=== PATIENT | female | born 1965 | race Caucasian/White ===

== ENCOUNTER 2022-05-13 10:41 | Observation (INO) | payer OTHER, SELFPAY ==
[2022-05-13] VITALS (7 sets, daily range): BP systolic 118–145; BP diastolic 60–82; PULSE 67–86; RESP 15–20; TEMP 36.2–38.1; O2SAT 96–100; BMI 26.5
--- NOTE | ~2022-05-13 | XR_ITS ---
XR chest 2V 05/13/2022 12:38 Indication: Shortness of breath with chest pain Procedure: 2 view chest Comparison: 10/19/2012 Findings: Heart size normal. There are calcified granulomas in the left apex unchanged. There is apic al pleural thickening/scarring unchanged. No acute focal pneumonia, edema, pleural effusion or pneumo thorax. No acute osseous abnormality. There are cholecystectomy clips. Impression: 1: No acute cardiopulmonary disease. Reviewed, dictated and finalized at location B. ICAL RESEARCH ASSOCIATE Impression: 1: No acute cardiopulmonary disease.
--- NOTE | 2022-05-13 11:02 | ECG_ITS ---
Measurements Intervals [place] Rate: 78 P: 73 IA: 145 QRS: 62 QRSD: 87 T: 56 QT: 376 QTc: 429 Interpretive Statements SINUS RHYTHM INCOMPLETE RIGHT BUNDLE BRANCH BLOCK BORDERLINE ECG NO PREVIOUS ECG AVAILABLE FOR COMPARISON Electronically Signed On 05-13-2022 11:36:21 FELLING MACHINE OPERATOR by Toni Doran D.O.
[2022-05-13 11:18] LABS: Basophils Percent Auto 0.7 % (0.2-1.2); Eosinophils Percent Auto 0.2 % (0-4.4); Hematocrit 42.1 % (37.0-47.0); Hemoglobin 13.8 g/dL (12.0-15.0); Immature Granulocyte Absolute 0.01 K/mm3 (0.00-0.031); Immature Granulocyte Percent A 0.2 % (0-0.5); Lymphocytes Absolute Auto 1.17 K/mm3 (0.9-3.2); Lymphocytes Percent Auto 21.7 % (18.3-44.2); Mean Corpuscular HGB Conc 32.8 g/dl (32-36); Mean Corpuscular Volume 85.6 fl (80-100); Monocytes Absolute Auto 0.7 K/mm3 (0.1-0.6); Monocytes Percent Auto 13.8 % (2.6-8.5); Neutrophils Absolute Auto 3.4 K/mm3 (1.3-6.7); Neutrophils Percent Auto 63.4 % (45.5-73.1); Platelet Count Result 172 k/mm3 (150-375); Red Blood Count 4.92 M/mm3 (4.2-5.4); Red Cell Distribution Width 13.3 % (11.5-14.5); White Blood Count 5.4 K/mm3 (4.5-10.0)
[2022-05-13 11:30] LABS: Alanine Aminotransferase 17 U/L (6-35); Albumin Level 4.4 g/dL (3.5-5.1); Alkaline Phosphatase 86 U/L (38-126); Anion Gap 10 mmol/L (8-16); Aspartate Amino Transferase 26 U/L (14-36); Bilirubin,Total 0.5 mg/dL (0.2-1.3); Blood Urea Nitrogen 16 mg/dL (7-17); Calcium 9.2 mg/dL (8.4-10.2); Carbon Dioxide 25 mmol/L (22-30); Chloride 105 mmol/L (98-107); Estimated CRCL calculation 41 ml/min; Estimated Glomerular Filt Rate 51; Glucose 95 mg/dL (65-110); Potassium 4.8 mmol/L (3.4-5.0); Sodium 140 mmol/L (137-145)
[2022-05-13 11:41] LABS: Troponin I < 0.012 ng/mL (0.000-0.034)
--- NOTE | 2022-05-13 12:24 | ED.SOB ---
HPI - SOB/Dyspnea General Chief Complaint: Shortness of Breath/Dyspnea <ODALYS Emery Last Filed: 05/13/22 18:07> Stated Complaint: cough/some sob <ODALYS Emery Last Filed: 05/13/22 18:07> Time Seen by Provider: 05/13/22 12:10 <ODALYS Emery Last Filed: 05/13/22 18:07> History of Present Illness HPI Narrative: Patient is a 57-year-old female with a history of COPD here for evaluation of fevers, cough, congestion and shortness of breath over the past 3 days. Her symptoms began with exertional dyspnea but today she was dyspneic at rest. Positive sick contacts, patient states that her mother is sick with similar symptoms. Patient has been taking Tylenol for fever, none today. She is unsure how high her fever reached. Patient is traveling from [place], states that her die maker apprentice told her to come to the ED for evaluation. No syncope or weakness. <ODALYS Emery Last Filed: 05/13/22 18:07> Related Data Home Medications: Home Medications Medication Instructions Recorded Confirmed amlodipine 2.5 mg tablet 2.5 mg DAILY 05/13/22 05/13/22 atorvastatin 10 mg tablet 10 mg HS 05/13/22 05/13/22 fluticasone fur. 100 mcg-umeclid 1 ea inhalation DAILY 05/13/22 05/13/22 62.5 mcg-vilant 25 mcg inhalat.powder (Trelegy Ellipta) montelukast 10 mg tablet 10 mg DAILY 05/13/22 05/13/22 <ODALYS Emery Last Filed: 05/13/22 18:07> Allergies/Adverse Reactions: Allergies Allergy/AdvReac Type Severity Reaction Status Date / Time codeine Allergy Unknown abdominal Verified 05/13/22 12:48 pain <ODALYS Emery Last Filed: 05/13/22 18:07> Review of Systems Review of Systems: Gen.: Reports fevers. Eyes: Denies eye pain or visual change ENT: Denies congestion Respiratory: Reports shortness of breath and cough. CV: Denies chest pain or palpitations GI: Denies abdominal pain nausea, emesis or diarrhea denies burning, urgency, frequency or hematuria Musculoskeletal: Denies back pain or muscle pain Neuro: Denies numbness, tingling, weakness or focal weakness Skin: Denies rash Except as documented, all other systems reviewed and negative <Isis Lakhani PA-C - Last Filed: 05/13/22 18:07> [facility] Family History Family History: Family History Mother Family history of osteoporosis Sibling Hypertension Father Cerebrovascular accident Family history of Alzheimer's disease Family history of heart disease in male family member before age 55 <Isis Lakhani PA-C - Last Filed: 05/13/22 18:07> Social History Social History: Social History Smoking status: Never smoker Alcohol intake: never Lack of Transportation: No Lack of Food: Never True Current Housing: I Have Housing Concerned About Future Housing: No Difficulty Paying Gas/Electric Bills: No Difficulty Paying for Meds: No Currently Unemployed: No Education: Decline to Answer Difficulty w/ Childcare or Family Care: No Spiritual care concerns: No <Isis Lakhani PA-C - Last Filed: 05/13/22 18:07> Exam Narrative: APPEARANCE: Well appearing, no pain in distress, well-nourished. Head: Normocephalic and atraumatic. EYES: PERRLA/EOMI, conjunctivae clear NOSE: No nasal drainage EARS: External ear normal in appearance THROAT: Oropharynx is clear. Mucous membranes are moist. NECK: Supple. No adenopathy, no masses. RESPIRATORY: Airway patent, respirations nonlabored. Clear to auscultation bilaterally, no rales, rhonchi, wheezing. CARDIOVASCULAR: Regular rate and rhythm without murmurs, rubs, or gallops. ABDOMINAL: Normoactive bowel sounds. Soft, nontender, nondistended. No rebound tenderness or guarding. MUSCULOSKELETAL: Extremities are warm and well-perfused. Moves all extremities well. No
[2022-05-13] MEDS: ACETAMINOPHEN 500 MG TABLET 1000 MG PO (12:47)
[2022-05-13 13:08] LABS: Influenza A QL RT-PCR Positive (Negative); Influenza B QL RT-PCR Negative (Negative); SARS-CoV-2 RNA PCR Negative
[2022-05-13] MEDS: predniSONE 20 MG TABLET 40 MG PO (13:18)
[2022-05-13] MEDS: IPRATROPIUM BR 0.02% INH SOLN 0.5 MG/2.5 ML VIAL INHALATION (13:19)
[2022-05-13] MEDS: ALBUTEROL SULFATE NEB 2.5 MG/3 ML INH INHALATION (13:19)
[2022-05-13 13:36] LABS: Base Excess ABG -1.5 mEq/l (+/-2.0); Fractional Inspired Oxygen 21 %; HCO3 ABG 20.1 mEq/l (22.0-26.0); Oxygen Content ABG 18.8 %vol (16.0-22.0); Oxygen Saturation ABG 97.1 % (95.0-100.0); Oxyhemoglobin 95.9 % THb (90.0-100.0); PCO2 ABG 26.2 mmHg (35.0-45.0); PO2 ABG 82.4 mmHg (80.0-100.0); PO2 FiO2 Ratio Arterial Blood 3.92 %; Total Hemoglobin 13.9 g/dL (12.0-18.0)
[2022-05-13 13:39] LABS: Device ROOM AIR; Modified Allen's Test Pass; Site Drawn LEFT RADIAL; pH ABG 7.502 (7.350-7.450)
--- NOTE | 2022-05-13 14:49 | PM.IMHP ---
H&P: HPI History of Present Illness Date/Time: 05/13/22 14:49 Chief Complaint: Shortness of breath, cough Narrative: 57-year-old female with a history of COPD who presented to the ER complaints of worsening shortness of breaths. Patient stated she started having fever started tonight. Her mother is also sick. Patient is from out of state. She was told by her tube coremaker to go get evaluated in the ER. She is currently not on any oxygen. In the ER her influenza a was positive. She also has some cough with occasional sputum production. No chest pain, no change in bladder or bowel habits, no change in her neurological status. Review of Systems Review of Systems: Gen.: Reports fevers. Eyes: Denies eye pain or visual change ENT: Denies congestion Respiratory: Reports shortness of breath and cough. CV: Denies chest pain or palpitations GI: Denies abdominal pain nausea, emesis or diarrhea denies burning, urgency, frequency or hematuria Musculoskeletal: Denies back pain or muscle pain Neuro: Denies numbness, tingling, weakness or focal weakness Skin: Denies rash Except as documented, all other systems reviewed and negative [facility] Family History Family History Mother Family history of osteoporosis Sibling Hypertension Father Cerebrovascular accident Family history of Alzheimer's disease Family history of heart disease in male family member before age 55 Social History Social History Smoking status: Never smoker Alcohol intake: never Meds Home Medications and Allergies Allergies Allergy/AdvReac Type Severity Reaction Status Date / Time codeine Allergy Unknown abdominal Verified 05/13/22 12:48 pain Vital Signs Vital Signs - 24 hr 05/13/22 10:58 05/13/22 13:30 05/13/22 13:40 Temperature 100.6 F H Pulse Rate 86 76 84 Respiratory Rate 20 18 20 Blood Pressure 145/82 H Pulse Oximetry 100 Oxygen Delivery Room Air 05/13/22 13:58 05/13/22 12:31 Temperature Pulse Rate 78 Respiratory Rate 15 Blood Pressure 133/74 Pulse Oximetry 96 Oxygen Delivery Room Air Exam Narrative: APPEARANCE: Well appearing, no pain in distress, well-nourished. Head: Normocephalic and atraumatic. EYES: PERRLA/EOMI, conjunctivae clear NOSE: No nasal drainage EARS: External ear normal in appearance THROAT: Oropharynx is clear. Mucous membranes are moist. NECK: Supple. No adenopathy, no masses. RESPIRATORY: Airway patent, respirations nonlabored. Clear to auscultation bilaterally, no rales, rhonchi, wheezing. CARDIOVASCULAR: Regular rate and rhythm without murmurs, rubs, or gallops. ABDOMINAL: Normoactive bowel sounds. Soft, nontender, nondistended. No rebound tenderness or guarding. MUSCULOSKELETAL: Extremities are warm and well-perfused. Moves all extremities well. No edema. NEURO: Normal speech. No focal neurologic deficits. SKIN: Skin is warm and dry. No rashes. PSYCHIATRIC: Normal affect/mood. H&P: Results Labs Labs: Short CBC 05/13/22 Range/Units 11:07 WBC 5.4 (4.5-10.0) K/mm3 Hgb 13.8 (12.0-15.0) g/dL Hct 42.1 (37.0-47.0) % Plt Count 172 (150-375) k/mm3 BMP 05/13/22 11:07 Sodium 140 Potassium 4.8 Chloride 105 Carbon Dioxide 25 BUN 16 Creatinine 1.10 H Glucose 95 Calcium 9.2 Cardiac Enzymes 05/13/22 Range/Units 11:07 Troponin I < 0.012 (0.000-0.034) ng/mL Liver Function 05/13/22 Range/Units 11:07 Total Bilirubin 0.5 (0.2-1.3) mg/dL AST 26 (14-36) U/L ALT 17 (6-35) U/L Alkaline Phosphatase 86 (38-126) U/L Albumin 4.4 (3.5-5.1) g/dL Assessment and Plan Assessment and plan (1) Influenza A: Code(s): J10.1 - Influenza due to other identified influenza virus with other respiratory manifestations Status: Acute Assessment and Plan: Her symptoms are likely due to influ
[2022-05-13] MEDS: LACTATED RINGERS 1,000 ML 100 ML IV CONT (15:55)
--- NOTE | 2022-05-13 16:32 | ADMGEN ---
This patient, Rosibel Grider, was admitted to [facility] Surg Room 300-01 at 1605. Patient/family oriented to hospital policies and general routines including ID bracelet, bed and alarms, visiting hours, pain management, procedures, bathroom and other care routines, personal items, smoking policy, room service/diet, and visiting hours. Information on how to activate the Rapid Response Team has been discussed. Patient/Family are encouraged to report perceived risks to care and to ask questions if they do not understand what they are told or what they should do.
[2022-05-13] MEDS: OSELTAMIVIR PHOSPHATE 30 MG CAPSULE PO (21:58)
[2022-05-14] MEDS: guaiFENesin/DEXTROMETHORPHAN 10 ML UDC PO (05:37)
[2022-05-14 06:00] VITALS: BP 142/71; PULSE 72; RESP 16; TEMP 36.4; O2SAT 97
[2022-05-14] MEDS: MONTELUKAST SODIUM 10 MG TABLET BY MOUTH (09:51)
[2022-05-14] MEDS: OSELTAMIVIR PHOSPHATE 30 MG CAPSULE PO ×2 (09:51→16:54)
[2022-05-14] MEDS: ENOXAPARIN 40 MG/0.4 ML SYRINGE SUB-Q (09:51)
[2022-05-14] MEDS: amLODIPine BESYLATE 2.5 MG TABLET BY MOUTH (09:51)
[2022-05-14] MEDS: FLUTICASONE/UMECLIDIN/VILANTER 100-62.5-25 MCG ELLIPTA 1 PUFF INHALATION (12:15)
[2022-05-14] MEDS: ALBUTEROL SULFATE NEB 2.5 MG/3 ML INH INHALATION ×2 (12:15→18:02)
[2022-05-14] MEDS: IPRATROPIUM BR 0.02% INH SOLN 0.5 MG/2.5 ML VIAL INHALATION ×2 (12:15→18:02)
[2022-05-14 12:16] VITALS: PULSE 70; RESP 18
[2022-05-14 12:19] VITALS: O2SAT 97
[2022-05-14 12:26] VITALS: PULSE 73; RESP 18
[2022-05-14 14:00] VITALS: BP 132/73; PULSE 74; RESP 20; TEMP 37.2; O2SAT 97
--- NOTE | 2022-05-14 16:57 | PM.DS ---
DS: Admitting Diagnosis Discharge Date 05/14/22 Admitting Diagnosis Shortness of breath DS: Discharge Diagnosis Discharge Diagnosis (1) Influenza A: Code(s): J10.1 - Influenza due to other identified influenza virus with other respiratory manifestations Status: Acute (2) Acute exacerbation of chronic obstructive airways disease: Code(s): J44.1 - Chronic obstructive pulmonary disease with (acute) exacerbation Status: Acute DS: Summary Hospital Course Reason for hospitalization: 57yo female here for shortness of breath and found to have influenza A. Please see H&P for details. Hospital Course: Patient presents with worsening shortness of breaths with fevers.? Her mother is also sick.? Patient is from out of state.? She was told by her automotive lube technician to go get evaluated in the ER.? Influenza A was positive.? She is having cough with occasional sputum production.?She was started on Tamiflu and nebulizers.? She had Tylenol and ibuprofen available for pain and fever.? It was felt whe had mild COPD exacerbation vs acute bronchitis.? No wheezing.? Robitussin DM was available for cough. Patient remained on room air. She had clinical improvement. She was able to be discharged home on 05/14/22. Status at Discharge Cognitive/behavioral status at discharge: Stable Time Spent with Patient Time attestation: Total time spent providing and/or coordinating discharge services: 34 minutes Time spent: Greater than 30 minutes Exam Narrative: Tm 100.6 98.9 132/73 74 20 97% ra Gen - NARD Chest - mild diffuse coarseness, no wheezing CV - RRR S1/S2 Abd - soft, NT/ND Ext - no edema Psych - nml mood and affect Skin - warm and dry Discharge Plan Discharge Attending physician on discharge: Jian Norwood Consulting providers: Isis Lakhani Discharging Clinician: Jian Norwood Anticipated Discharge Date/Time: 05/14/22 17:06 Patient Disposition: Home, Self-Care Activity: as tolerated Diet: regular Discharge Instructions: Stay home, rest, and drink plenty of fluids. Take acetaminophen for fever or aches. Most people with the flu get better on their own within 1 to 2 weeks. Do not go to work or school until your fever has been gone for at least 24 hours, without taking medicine such as acetaminophen. Return to the ED or call your doctor if you have recurrent fever, more productive cough or other concerning symptoms. You will be going home with Tamiflu. Take all the medication until it is gone. Follow up with your doctor once you return home. Patient Instructions: Antibiotic Form Stand Alone Forms: General Discharge Information Follow-up/Referrals: PHYSICIAN NOT ON STAFF,NONSTAFF [Primary Care Provider] - Call for Appointment Discharge Medications: New albuterol sulfate [Proventil HFA] 90 mcg/actuation Hfa Aerosol Inhaler 2 puff inhalation QIDRT PRN (Reason: Shortness Of Breath) Qty: 6.7 0RF oseltamivir [Tamiflu] 30 mg Capsule 30 mg PO Q12HR Qty: 6 0RF Continued atorvastatin 10 mg Tablet 10 mg HS amlodipine 2.5 mg tablet 2.5 mg DAILY montelukast 10 mg tablet 10 mg DAILY Trelegy Ellipta 100-62.5-25 mcg Blister With Device 1 ea INHALATION DAILY Date of admission: 05/13/22 14:06 Primary Care Provider: PHYSICIAN NOT ON STAFF,NONSTAFF Admitting Provider: Guy Moseley Attending physician on admission: Guy Moseley Condition: Stable
[2022-05-14 18:02] VITALS: PULSE 70; RESP 18
== END 2022-05-14 18:25 | disposition home or self-care (01) ==
LOC: ANHED 14:07 → ANH3MEDSUR 05-14 09:51
PROVIDERS: Emergency Medicine; Physician Assistant; Admitting Provider Hospitalist; Emergency Provider Emergency Medicine; Visit Provider Internal Medicine
DX: J10.1 Influenza due to other identified influenza virus with other respiratory manifestations (principal); J44.1 Chronic obstructive pulmonary disease with (acute) exacerbation; I45.10 Unspecified right bundle-branch block; R06.82 Tachypnea, not elsewhere classified; Z20.822 Contact with and (suspected) exposure to COVID-19; Z79.51 Long term (current) use of inhaled steroids; Z79.899 Other long term (current) drug therapy
CPT/HCPCS: 36415; 36600; 71046; 80053; 82805; 84484; 85025; 87636; 93005; 94640; 96372; 99285; A9270; G0378; J1650; J7120; J7512

== ENCOUNTER 2024-06-19 09:09 | Emergency (ER) | payer BC, SELFPAY ==
--- NOTE | ~2024-06-19 | XR_ITS ---
EXAMINATION: XR chest 2V DATE: 06/19/2024 10:18 INDICATION: Cough. COPD. TECHNIQUE: PA and lateral views of the chest were obtained. COMPARISON: Chest radiograph dated 05/13/2022 FINDINGS: Stable appearance of moderate pleural parenchymal scarring at the periphery of the bilateral upper isma ng zones. New retrocardiac airspace opacity medial left lung base which represent atelectasis or pneu monia. No pleural effusion or pneumothorax. The cardiomediastinal silhouette is normal. Cholecystecto my clips at the right upper quadrant. IMPRESSION: 1. New retrocardiac airspace opacity at the medial left lung base which could represent atelectasis o r pneumonia. Reviewed, dictated and finalized at location A. [employer] INTER[employer] IMPRESSION: 1. New retrocardiac airspace opacity at the medial left lung base which could r epresent atelectasis or pneumonia.
[2024-06-19 09:21] VITALS: BP 141/74; PULSE 87; RESP 18; TEMP 36.4; O2SAT 98
[2024-06-19 09:51] LABS: EDINFLUASCREEN Negative (Negative); EDINFLUBSCREEN Negative (Negative)
--- NOTE | 2024-06-19 10:02 | ED_ITS ---
HPI - URI/Sore Throat General Chief Complaint: Upper Respiratory Infection Stated Complaint: SOB/Cough Time Seen by Provider: 06/19/24 10:03 Source: patient, RN notes reviewed and old records reviewed Mode of arrival: ambulatory Limitations: no limitations History of Present Illness HPI Narrative: 59-year-old female with a history of COPD presents to the [facility] with approximately 4-5 weeks up cough and shortness of breath. Has had 2 rounds of antibiotics, finished the last round 3 days ago Related Data Home Medications ?Medication ?Instructions ?Recorded ?Confirmed ?Last Taken ?Type amlodipine 2.5 mg tablet 2.5 mg DAILY 05/13/22 05/13/22 05/12/22 08:00 History atorvastatin 10 mg tablet 10 mg HS 05/13/22 05/13/22 05/12/22 19:00 History fluticasone fur. 100 mcg-umeclid 1 ea inhalation DAILY 05/13/22 05/13/22 05/12/22 08:00 History 62.5 mcg-vilant 25 mcg inhalat.powder (Trelegy Ellipta) montelukast 10 mg tablet 10 mg DAILY 05/13/22 05/13/22 05/12/22 08:00 History Allergies Allergy/AdvReac Type Severity Reaction Status Date / Time codeine AdvReac Intermediate abdominal Verified 06/19/24 09:22 pain Review of Systems Review of Systems: All systems reviewed & are unremarkable except as noted in HPI and below Constitutional: Constitutional: Reports no additional constitutional complaints ENT: Reports system reviewed and no additional complaints, except as documented Cardiovascular: Cardiovascular: Reports no additional cardiovascular complaints, Denies chest pain and Denies dyspnea Respiratory: Respiratory: Reports as per HPI, Reports chest congestion, Reports cough and Reports dyspnea Musculoskeletal: Musculoskeletal: Reports no additional musculoskeletal complaints Integumentary/Breasts: Skin/Breast: Reports system reviewed and no additional complaints, except as docu PMFSH Family History Family History Mother Family history of osteoporosis Sibling Hypertension Father Cerebrovascular accident Family history of Alzheimer's disease Family history of heart disease in male family member before age 55 Social History Social History Smoking status: Never smoker Alcohol intake: never Lack of Transportation: No Lack of Food: Never True Current Housing: I Have Housing Concerned About Future Housing: No Difficulty Paying Gas/Electric Bills: No Difficulty Paying for Meds: No Currently Unemployed: No Education: Decline to Answer Difficulty w/ Childcare or Family Care: No Spiritual care concerns: No Comments At the time of my signature, I reviewed and agree with the nursing past medical, surgical, social, and family history. There is no relevant family history pertinent to the patient complaint. Exam Const: General: cooperative, healthy appearing, comfortable, no acute distress, well developed, alert and well nourished Nutritional Appearance: well nourished Orientation/consciousness: patient oriented x3 Limitations: no limitations HENMT: Head: normal to inspection Ears: hearing grossly normal bilaterally, external ears normal, TM's normal bilaterally, EAC's normal, mastoids normal and no periauricular adenopathy Face/Nose/Sinus: normal facial exam and face symmetric Face and sinus: normal facial exam and face symmetric Eyes: General: appearance normal, both eyes and all related structures Neck: Neck: normal visual inspection, full ROM, no lymphadenopathy and no meningeal signs Chest: Chest palpation & inspection: normal inspection of the chest Resp: Effort & Inspection: normal respiratory effort and able to speak in complete sentences Auscultation: no crackles, no rales, no rhonchi and wheezes Cardio: Rate: regular rate Skin: General skin exam: normal color and no rashes or lesions noted Neuro: General: patient oriented x3, gait normal, moves all extremities and no meningeal signs Cognition (Neuro): normal cognition Speech: normal speech Gait exam (Neuro): Normal gait present Extrem: General: normal to inspection, full ROM, capillary refill normal and normal gait Psych: Appearance: grossly normal and well kempt Mental Status: mental status grossly normal Speech and movement: Normal speech and movement present and Clear speech present Affect: normal affect Attitude: cooperative Course Course Level of Care: Express Care Visit Vital Signs Vital signs: Vital Signs Temperature 97.5 F L 06/19/24 09:21 Pulse Rate 87 06/19/24 09:21 Respiratory Rate 18 06/19/24 09:21 Blood Pressure 141/74 H 06/19/24 09:21 Pulse Oximetry 98 06/19/24 09:21 Oxygen Delivery Room Air 06/19/24 09:21 Temperature 97.5 F L 06/19/24 09:21 Pulse Rate 88 06/19/24 10:38 Respiratory Rate 20 06/19/24 10:38 Blood Pressure 141/74 H 06/19/24 09:21 Pulse Oximetry 98 06/19/24 10:38 Oxygen Delivery Room Air 06/19/24 09:21 Reviewed MDM - URI/Sore Throat MDM Narrative Medical decision making narrative: Patient sitting in exam room. Nontoxic, vitals are stable. Patient presents with approximately 4 weeks of cough. Has a history of COPD. Patient has had 2 rounds of antibiotics. Exam most consistent with COPD exacerbation, x-ray shows possible pneumonia, will add antibiotic. Discharge instructions reviewed with patient, as well as provided in writing per nursing staff. The instructions also include specific and strict return/GO TO THE ER as well as f/u information. All questions have been answered, and the patient deny any further questions with discharge and discharge plan. Some parts of this dictation were generated by voice recognition software and may contain typographical and/or grammatical inaccuracies. Differential Diagnosis Differential diagnosis: Likely upper respiratory infection, otitis media, sinusitis, viral infection and other (Pneumonia, COPD) Lab Data Labs: Lab Results 06/19/24 Range/Units 09:49 POC Influenza A Ag Negative (Negative) POC Influenza B Ag Negative (Negative) Reviewed Imaging Data Radiologist's impression: EXAMINATION: XR chest 2V DATE: 06/19/2024 10:18 INDICATION: Cough. COPD. TECHNIQUE: PA and lateral views of the chest were obtained. COMPARISON: Chest radiograph dated 05/13/2022 FINDINGS: Stable appearance of moderate pleural parenchymal scarring at the periphery of t he bilateral upper lung zones. New retrocardiac airspace opacity medial left lung base which represent atelectasis or pneumonia. No pleural effusion or pneumothorax. The cardiomediastinal silhouette is normal. Cholecystectomy clips at the right upper quadrant. IMPRESSION: 1. New retrocardiac airspace opacity at the medial left lung base which could represent atelectasis or pneumonia. Critical Care Time Critical Care Time Critical Care Time: No Discharge Plan Discharge Clinical Impression: COPD (chronic obstructive pulmonary disease) with acute bronchitis Patient Disposition: Home, Self-Care Condition: Stable Instructions: Antibiotic Form, COPD (Chronic Obstructive Pulmonary Disease) (DC) Additional Instructions: Take Mucinex daily. Use your albuterol inhaler 3 to 4 times a day for the next 3 days then as needed Take the steroid as prescribed You if you develop worsening symptoms please go directly to the emergency room Patient Language: Malaysian Prescriptions: New albuterol sulfate 90 mcg/actuation HFA aerosol inhaler 2 puff inhalation QID PRN (Reason: shortness of breath or wheezing) Qty: 6.7 0RF (DME) Aerochamber MV Spacer See Rx Instructions .Route Qty: 1 0RF Rx Instructions: As directed prednisone 20 mg tablet See Rx Instructions .Route .COMPLEX Qty: 9 0RF Rx Instructions: Take 40 mg daily for 3 days, 20 mg daily for 3 days doxycycline monohydrate 100 mg tablet 100 mg PO BID Qty: 14 0RF No Action atorvastatin 10 mg Tablet 10 mg HS amlodipine 2.5 mg tablet 2.5 mg DAILY montelukast 10 mg tablet 10 mg DAILY Trelegy Ellipta 100-62.5-25 mcg Blister With Device 1 ea INHALATION DAILY albuterol sulfate [Proventil HFA] 90 mcg/actuation Hfa Aerosol Inhaler 2 puff inhalation QIDRT PRN (Reason: Shortness Of Breath) Qty: 6.7 0RF Follow-up/Referrals: PHYSICIAN,PARTS COUNTER REPRESENTATIVE [Primary Care Provider] - Time of Disposition: 10:59
[2024-06-19 10:16] VITALS: PULSE 78; RESP 18; O2SAT 98
[2024-06-19] MEDS: IPRATROPIUM 0.5 MG/ALBUTEROL SULFATE 2.5 MG AMPUL.NEB 3 ML INHALATION (10:19)
[2024-06-19 10:38] VITALS: PULSE 88; RESP 20; O2SAT 98
== END 2024-06-19 11:00 | disposition home or self-care (01) ==
PROVIDERS: Emergency Provider Nurse Practitioner
DX: J44.0 Chronic obstructive pulmonary disease with (acute) lower respiratory infection (principal)
CPT/HCPCS: 71046; 87804; 99213; G0463